=== PATIENT | female | born 1975 | race Two or more races ===

== ENCOUNTER 2022-06-21 00:47 | Emergency (ER) | payer BC, OTHER ==
[~2022-06-21] VITALS: Ht 160 cm; Wt 65.9 kg
[2022-06-21] MEDS ORDERED: proCHLORperazine 10 MG/2 ml inj IV ONE (01:10)
[2022-06-21] MEDS ORDERED: normal saline 1000ml 1,000 ML IV ONE (01:10)
[2022-06-21] MEDS ORDERED: ketorolac trometh. 30mg/ml inj. IV ONE (01:10)
[2022-06-21] MEDS ORDERED: acetaminophen 325mg tablet PO ONE (01:10)
[2022-06-21] MEDS ORDERED: haloperidol lactate 5mg/ml inj IM ONE (01:45)
[2022-06-21] MEDS ORDERED: magnesium 2GM in 50ml NS 50 ML IV ONE (01:45)
[2022-06-21] MEDS ORDERED: diphenhydrAMINE 50 mg/ml inj IV ONE (01:45)
[2022-06-21 03:57] VITALS: BP 149/93
== END 2022-06-21 04:05 | disposition home or self-care (01) ==
LOC: ER 00:48
DX: G43.909 Migraine, unspecified, not intractable, without status migrainosus (principal); R11.2 Nausea with vomiting, unspecified; E78.00 Pure hypercholesterolemia, unspecified; Z88.0 Allergy status to penicillin; H53.149 Visual discomfort, unspecified; Z56.0 Unemployment, unspecified; Z88.2 Allergy status to sulfonamides
CPT/HCPCS: 96361; 96365; 96366; 96372; 96375; 99284; J0780; J1200; J1630; J1885; J3475; J7030

== ENCOUNTER 2023-01-08 15:20 | Outpatient (CLI) | payer BC ==
[~2023-01-08] VITALS: Ht 160 cm; Wt 65.8 kg
[2023-01-08] MEDS: albuterol 2.5 MG/3 ML nebule NEB PRN (15:53)
== END 2023-01-08 23:59 | disposition home or self-care (01) ==
LOC: RT 15:20
PROVIDERS: ATTEND Otolaryngology
DX: R94.2 Abnormal results of pulmonary function studies (principal); J32.0 Chronic maxillary sinusitis; R06.02 Shortness of breath
CPT/HCPCS: 94060; 94760

== ENCOUNTER 2023-03-09 03:28 | Emergency (ER) | payer BC ==
[~2023-03-09] VITALS: Ht 160 cm; Wt 65.9 kg
[~2023-03-09 03:28] MED LIST: CYCL-1 PO; NAPR-996 PO; PRED10TA PO
[2023-03-09] MEDS ORDERED: SUMAtriptan 25 MG tablet PO ONE (03:45)
[2023-03-09] MEDS ORDERED: metoclopramide 10mg tablet PO ONE (04:00)
[2023-03-09] MEDS ORDERED: morphine 4 MG/ML inj SYRINge IM STA (04:26)
[2023-03-09] MEDS ORDERED: ondansetron 4mg rapidly disintigrating tab PO STA (04:26)
[2023-03-09] MEDS ORDERED: morphine 4 MG/ML inj SYRINge ONE (05:04)
[2023-03-09] MEDS ORDERED: morphine 4 MG/ML inj SYRINge IV ONE (05:05)
--- NOTE | 2023-03-09 05:06 | NUR ---
2ND DOSE OF MORPHINE 4MG IM ROUTE, NOT IV ROUTE. MD WOLF & JEZ.
[2023-03-09] MEDS ORDERED: LORazepam 1 MG tablet PO STA (05:31)
[2023-03-09] MEDS ORDERED: ketorolac trometh inj. 60 MG/2 ML VIAL IM ONE (05:45)
[2023-03-09] MEDS ORDERED: diphenhydrAMINE 25mg capsule PO STA (05:49)
[2023-03-09 05:56] VITALS: BP 185/110
== END 2023-03-09 06:05 | disposition home or self-care (01) ==
LOC: ER 06:04
DX: G43.909 Migraine, unspecified, not intractable, without status migrainosus (principal); E78.00 Pure hypercholesterolemia, unspecified; Z56.0 Unemployment, unspecified; Z88.0 Allergy status to penicillin; Z88.2 Allergy status to sulfonamides; Z88.5 Allergy status to narcotic agent; Z79.899 Other long term (current) drug therapy; Z79.1 Long term (current) use of non-steroidal anti-inflammatories (NSAID)
CPT/HCPCS: 70450; 96372; 96374; 99285; J2270; Q0163